=== PATIENT | female | born 1990 | race African-American/Black ===

== ENCOUNTER 2017-11-15 19:36 | Emergency (ER) | payer OTHER ==
[2017-11-15 20:30] VITALS: BP 128/88
--- NOTE | 2017-11-15 20:51 | ER Document Report ---
ED Medical Screen (RME) - General Chief Complaint: Palpitations Time Seen by Provider: 11/15/17 20:49 Notes: Patient is 36 weeks states she has had progressive shortness of breath the last month. She is also felt chest pain since 5 PM today. TRAVEL OUTSIDE OF THE [place] IN LAST 30 DAYS: No - Related Data Allergies/Adverse Reactions: No Known Allergies Allergy (Verified 11/15/17 20:09) Past Medical History - Social History Chew tobacco use (# tins/day): No Frequency of alcohol use: None Drug Abuse: None Renal/ Medical History: Denies: Hx Peritoneal Dialysis Physical Exam - Vital signs Vitals: Temp Pulse Resp BP Pulse Ox 98.3 F 85 16 128/88 H 100 11/15/17 20:29 11/15/17 20:29 11/15/17 20:29 11/15/17 20:29 11/15/17 20:29 Course - Vital Signs Vital signs: Temp Pulse Resp BP Pulse Ox 98.3 F 85 16 128/88 H 100 11/15/17 20:29 11/15/17 20:29 11/15/17 20:29 11/15/17 20:29 11/15/17 20:29
[2017-11-15 21:51] LABS: ABSOLUTE LYMPHOCYTES (AUTO) 1.1 10^3/uL (0.5-4.7); ABSOLUTE MONOCYTES (AUTO) 0.6 10^3/uL (0.1-1.4); BASOPHILS % (AUTO) 0.4 % (0-2); EOSINOPHILS % (AUTO) 0.8 % (0-6); HEMATOCRIT 39.7 % (36.0-47.0); HEMOGLOBIN 13.3 g/dL (12.0-15.5); LYMPHOCYTES % (AUTO) 22.8 % (13-45); MEAN CORPUSCULAR HEMOGLOBIN 27.3 pg (27.0-33.4); MEAN CORPUSCULAR HGB CONC 33.5 g/dL (32.0-36.0); MEAN CORPUSCULAR VOLUME 81 fl (80-97); MONOCYTES % (AUTO) 12.6 % (3-13); PLATELET COUNT 169 10^3/uL (150-450); RED BLOOD COUNT 4.88 10^6/uL (3.72-5.28); RED CELL DISTRIBUTION WIDTH 14.7 % (11.5-14.0); SEGMENTED NEUTROPHILS % (AUTO) 63.4 % (42-78); TOTAL CELLS COUNTED % (AUTO) 100 %; WHITE BLOOD COUNT 4.7 10^3/uL (4.0-10.5)
--- NOTE | 2017-11-15 21:53 | ER Document Report ---
ED General - General Chief Complaint: Palpitations Time Seen by Provider: 11/15/17 20:49 TRAVEL OUTSIDE OF THE [place] IN LAST 30 DAYS: No - HPI Notes: Patient is a 27-year-old female who is approximately 36 weeks with no significant past medical history presents to the ED complaining of pelvic cramping, and patient is concerned that this could be labor cramps. Patient states that with her first child she was unable to tell when she is having cramping. Patient was directed the emergency department because labor and delivery wanted her cleared prior as she had one brief episode of feeling palpitations at 1600 today with an episode of shortness of breath. Patient states that her symptoms resolved within 30 seconds, and were precipitated by pelvic pain. Patient states that she is ambulatory without any chest pains or shortness of breath. Patient is primarily concerned with the cramps. She denies any prolonged immobilization, recent surgery/trauma, smoking, drug use, previous DVT/PE. She has been eating and drinking without difficulties. She has been urinating normally and having normal bowel movements. She has no other concerns or complaints at this time. Denies any headache, fever, neck pain, URI, sore throat, chest pain, current palpitations, syncope, cough, current shortness of breath, wheeze, dyspnea, abdominal pain, nausea/vomiting/ diarrhea, urinary retention, dysuria, hematuria, vaginal bleeding, or rash. - Related Data Allergies/Adverse Reactions: No Known Allergies Allergy (Verified 11/15/17 20:09) Past Medical History - Social History Smoking Status: Never Smoker Chew tobacco use (# tins/day): No Frequency of alcohol use: None Drug Abuse: None Family History: Reviewed & Not Pertinent Patient has suicidal ideation: No Patient has homicidal ideation: No Renal/ Medical History: Denies: Hx Peritoneal Dialysis Review of Systems - Review of Systems -: Yes All other systems reviewed and negative Physical Exam - Vital signs Vitals: Temp Pulse Resp BP Pulse Ox 98.3 F 85 16 128/88 H 100 11/15/17 20:29 11/15/17 20:29 11/15/17 20:29 11/15/17 20:29 11/15/17 20:29 - Notes Notes: PHYSICAL EXAMINATION: GENERAL: Well-appearing, well-nourished and in no acute distress. A&Ox4. Answers questions appropriately. Chest: non-tender. no flail chest. LUNGS: Breath sounds clear to auscultation bilaterally and equal. No wheezes rales or rhonchi. HEART: Regular rate and rhythm without murmurs, rubs, gallops. ABDOMEN: Soft, nontender, nondistended abdomen. No guarding, no rebound. No masses appreciated. Normal bowel sounds present. No CVA tenderness bilaterally. Musculoskeletal: FROM to passive/active. Strength 5+/5. Gabe neg b/l. Extremities: No cyanosis, clubbing, or edema b/l. Peripheral pulses 2+. Capillary refill less than 3 seconds. NEUROLOGICAL: Normal speech, normal gait. Normal sensory, motor exams PSYCH: Normal mood, normal affect. SKIN: Warm, Dry, normal turgor, no rashes or lesions noted. Course - Re-evaluation Re-evalutation: 11/15/17 21:53 Patient is an afebrile, well-hydrated, 27-year-old female who presents to the ED with intermittent pelvic cramping. Vitals are acceptable. PE is otherwise unremarkable. CBC unremarkable for any acute pathology, CMP pending, EKG unremarkable for any acute pathology. Patient is PERC negative with a well score of 0. Patient did have a brief episode of palpitations and shortness of breath that was precipitated by pelvic cramping. That occurred about 5-1/2 hours ago and has not recurred since. Patient is most concerned about her cramping. I also am most concerned about her cramping and that she needs to be seen on the labor and delivery floor for further evaluation and management. No other labs or imaging warranted at this time based on H&P. Patient is in agreement. Patient to return to the emergency department any worsening/ concerning symptoms otherwise as reviewed discharge. - Vital Signs Vital signs: Temp Pulse Resp BP Pulse Ox 98.3 F 85 16 128/88 H 100 11/15/17 20:29 11/15/17 20:29 11/15/17 20:29 11/15/17 20:29 11/15/17 20:29 - Laboratory Result Diagrams: 11/15/17 21:37 11/15/17 21:37 Discharge - Discharge Clinical Impression: Pelvic cramping Condition: Stable Disposition: HOME, SELF-CARE Additional Instructions: Go to L&D floor for further evaluation and management. Recheck otherwise with OBGYN/PCM in 2-3 days. Return to the ED with any worsening symptoms and/or development of fever, headache, chest pain, palpitations, syncope, shortness of breath, trouble breathing, abdominal pain, n/v/d, blood in stool/urine, loss of control of bowel /bladder, urinary retention, muscle weakness/paralysis, saddle anesthesia, numbness/tingling, vaginal bleeding, or other worsening symptoms that are concerning to you. Referrals: [facility] [Provider Group] - Follow up as needed
[2017-11-15 22:04] LABS: ALANINE AMINOTRANSFERASE 29 U/L (9-52); ALBUMIN 4.1 g/dL (3.5-5.0); ALKALINE PHOSPHATASE 113 U/L (38-126); ANION GAP 10 (5-19); ASPARTATE AMINO TRANSFERASE 26 U/L (14-36); BILIRUBIN,DIRECT 0.2 mg/dL (0.0-0.4); BILIRUBIN,TOTAL 0.8 mg/dL (0.2-1.3); BLOOD UREA NITROGEN 4 mg/dL (7-20); CALCIUM 10.1 mg/dL (8.4-10.2); CARBON DIOXIDE 26 mmol/L (22-30); CHLORIDE 104 mmol/L (98-107); GLUCOSE 71 mg/dL (75-110); SODIUM 139.5 mmol/L (137-145); TOTAL PROTEIN 6.6 g/dL (6.3-8.2)
--- NOTE | 2017-11-15 22:52 | EKG REPORT ---
SEVERITY:- ABNORMAL ECG - SINUS RHYTHM PROBABLE LEFT ATRIAL ABNORMALITY RIGHT BUNDLE BRANCH BLOCK : Confirmed by: Denzel Fernández MD 15-Nov-2017 22:51:30
== END 2017-11-15 21:50 | disposition home or self-care (01) ==
LOC: ER 19:36 → EDSTATUS 19:36 → ER 21:50
DX: O26.899 Other specified pregnancy related conditions, unspecified trimester (principal); R10.2 Pelvic and perineal pain; R00.2 Palpitations; R06.02 Shortness of breath; Z3A.00 Weeks of gestation of pregnancy not specified
CPT/HCPCS: 36415; 80053; 85025; 93005; 93010; 99285

== ENCOUNTER 2017-11-15 21:55 | Outpatient (CLI) | payer OTHER ==
[2017-11-15 22:45] LABS: APPEARANCE,URINE CLOUDY; BILIRUBIN,URINE NEGATIVE (NEGATIVE); COLOR,URINE YELLOW; GLUCOSE, URINE NEGATIVE (NEGATIVE); KETONES,URINE TRACE mg/dL (NEGATIVE); LEUKOCYTE ESTERASE,URINE SMALL (NEGATIVE); NITRITE,URINE NEGATIVE (NEGATIVE); PROTEIN,URINE NEGATIVE (NEGATIVE); URINE SPECIFIC GRAVITY 1.014
[2017-11-15 23:02] LABS: URINE AMPHETAMINES SCREEN NEGATIVE; URINE BARBITURATES SCREEN NEGATIVE; URINE BENZODIAZEPINES SCREEN NEGATIVE; URINE COCAINE SCREEN NEGATIVE; URINE MARIJUANA (THC) SCREEN NEGATIVE; URINE METHADONE SCREEN NEGATIVE; URINE PHENCYCLIDINE SCREEN NEGATIVE
[2017-11-15 23:49] LABS: AMNISURE (ROM) NEGATIVE (NEGATIVE)
== END 2017-11-16 00:55 | disposition home or self-care (01) ==
LOC: LC 21:55
PROVIDERS: ATTEND Student in an Organized Health Care Education/Training Program
PROC: 4A1HXCZ Monitoring of Products of Conception, Cardiac Rate, External Approach (ICD-10-PCS; principal; 2017-11-15)
DX: O47.03 False labor before 37 completed weeks of gestation, third trimester (principal); Z3A.36 36 weeks gestation of pregnancy
CPT/HCPCS: 59025; 80307; 81001; 84112

== ENCOUNTER 2017-11-20 06:09 | Outpatient (CLI) | payer OTHER ==
[2017-11-20 06:48] LABS: APPEARANCE,URINE CLOUDY; BILIRUBIN,URINE NEGATIVE (NEGATIVE); GLUCOSE, URINE NEGATIVE (NEGATIVE); KETONES,URINE NEGATIVE (NEGATIVE); LEUKOCYTE ESTERASE,URINE LARGE (NEGATIVE); NITRITE,URINE NEGATIVE (NEGATIVE); PROTEIN,URINE 30 mg/dL (NEGATIVE); URINE SPECIFIC GRAVITY 1.017
[2017-11-20 06:57] LABS: COLOR,URINE YELLOW
[2017-11-20 07:04] LABS: URINE AMPHETAMINES SCREEN NEGATIVE; URINE BARBITURATES SCREEN NEGATIVE; URINE BENZODIAZEPINES SCREEN NEGATIVE; URINE COCAINE SCREEN NEGATIVE; URINE MARIJUANA (THC) SCREEN NEGATIVE; URINE METHADONE SCREEN NEGATIVE; URINE PHENCYCLIDINE SCREEN NEGATIVE
[2017-11-20] MEDS ORDERED: HYDROXYZINE PAMOATE 50 MG CAPSULE ONE (08:08)
[2017-11-20] MEDS ORDERED: HYDROXYZINE PAMOATE 50 MG CAPSULE PO ONE (08:42)
== END 2017-11-20 08:35 | disposition home or self-care (01) ==
LOC: LC 06:09
PROVIDERS: ATTEND Obstetrics & Gynecology
PROC: 4A1HXCZ Monitoring of Products of Conception, Cardiac Rate, External Approach (ICD-10-PCS; principal; 2017-11-20)
DX: O47.1 False labor at or after 37 completed weeks of gestation (principal); Z3A.37 37 weeks gestation of pregnancy
CPT/HCPCS: 59025; 80307; 81005; 87081

== ENCOUNTER 2017-11-27 02:06 | Outpatient (CLI) | payer OTHER ==
[2017-11-27 02:41] LABS: BILIRUBIN,URINE NEGATIVE (NEGATIVE); COLOR,URINE YELLOW; GLUCOSE, URINE NEGATIVE (NEGATIVE); KETONES,URINE NEGATIVE (NEGATIVE); LEUKOCYTE ESTERASE,URINE TRACE (NEGATIVE); NITRITE,URINE NEGATIVE (NEGATIVE); PROTEIN,URINE NEGATIVE (NEGATIVE); URINE SPECIFIC GRAVITY 1.005
[2017-11-27 02:45] LABS: APPEARANCE,URINE CLEAR
[2017-11-27 02:59] LABS: URINE AMPHETAMINES SCREEN NEGATIVE; URINE BARBITURATES SCREEN NEGATIVE; URINE BENZODIAZEPINES SCREEN NEGATIVE; URINE COCAINE SCREEN NEGATIVE; URINE MARIJUANA (THC) SCREEN NEGATIVE; URINE METHADONE SCREEN NEGATIVE; URINE PHENCYCLIDINE SCREEN NEGATIVE
[2017-11-27] MEDS ORDERED: HYDROXYZINE PAMOATE 50 MG CAPSULE PO ONE (05:35)
[2017-11-27] MEDS ORDERED: HYDROXYZINE PAMOATE 50 MG CAPSULE ONE (05:39)
[2017-11-27 07:31] LABS: CHLAM PCR NOT DETECTED (NOT DETECT); GON PCR NOT DETECTED (NOT DETECT)
== END 2017-11-27 05:48 | disposition home or self-care (01) ==
LOC: LC 02:06
PROVIDERS: ATTEND Obstetrics & Gynecology
PROC: 4A1HXCZ Monitoring of Products of Conception, Cardiac Rate, External Approach (ICD-10-PCS; principal; 2017-11-27)
DX: O47.1 False labor at or after 37 completed weeks of gestation (principal); Z3A.38 38 weeks gestation of pregnancy
CPT/HCPCS: 59025; 80307; 81005; 87491; 87591

== ENCOUNTER 2017-12-01 21:55 | Inpatient (IN) | payer OTHER ==
--- NOTE | 2017-12-01 22:03 | Non Stress Test Report ---
Non Stress Test Datetime Report Generated by CPN: 12/01/2017 22:03 DEMOGRAPHIC EGA NST: 38.1 EGA NST: 37.1 EGA NST: 36.3 INDICATION Indication for Study: Ordered by Provider Indication for Study: Ordered by Provider Indication for Study: Ordered by Provider VITAL SIGNS Temperature - NST: 97.9 Pulse - NST: 89 RESP - NST: 18 NBPSYS NST: 116 NBPDIA NST: 64 URINE RESULTS Urine Protein, NST: Negative Urine Ketones - NST: Positive Urine Glucose - NST: Negative Urine Blood - NST: Negative MONITORING Monitor Explained: Monitor Explained; Test Explained; Patient Verbalized Understanding Monitor Explained: Monitor Explained; Test Explained; Patient Verbalized Understanding Monitor Explained: Monitor Explained; Test Explained; Patient Verbalized Understanding Time on Monitor: 11/27/2017 03:55 Time on Monitor: 11/20/2017 07:45 Time on Monitor: 11/15/2017 22:19 Time off Monitor: 11/27/2017 04:18 Time off Monitor: 11/20/2017 08:14 Time off Monitor: 11/16/2017 00:39 NST Duration: 23 NST Duration: 29 NST Duration: 140 NST INTERVENTIONS NST Interventions: PO Hydration; Other NST Interventions: None NST Interventions: None NST Interventions Other: popsicle Physician Notified NST: Dr. Broderick Physician Notified NST: Ramon Pena CNM Physician Notified NST: Dr. Quintanilla BABY A: [id number] Movement : Present Movement : Present Movement : Present Contraction Frequency : 5-6 Contraction Frequency : irregular Contraction Frequency : 2-9 FHR Baseline : 120 FHR Baseline : 130 FHR Baseline : 130 Accelerations : 15X15 Accelerations : 15X15 Accelerations : 15X15 Decelerations : None Decelerations : None Decelerations : None Variability : Moderate 6-25bpm Variability : Moderate 6-25bpm NST Review: Meets Criteria for Reactive NST NST Review: Meets Criteria for Reactive NST NST Review: Meets Criteria for Reactive NST NST Review and Verified By : keon jean NST Review and Verified By : Jacquie Gross RN NST Review and Verified By : Nan Vasquez RN NST Results: Reactive NST Results: Reactive NST REPORT Report Trigger: Send Report
[2017-12-01] MEDS ORDERED: MISOPROSTOL 0.2 MG TABLET ONE (22:04)
[2017-12-01] MEDS ORDERED: RINGERS SOLUTION,LACTATED 1,000 ML IV PRN (22:04)
[2017-12-01] MEDS ORDERED: OXYTOCIN/NORMAL SALINE 20 UNIT/1,000 ML RTUINJ ONE (22:04)
[2017-12-01] MEDS ORDERED: LIDOCAINE 1% INJ-PF (10 MG/ML) 30 ML SDV ONE (22:04)
--- NOTE | 2017-12-01 22:14 | Admission Physical ---
Datetime Report Generated by CPN: 12/01/2017 22:14 CURRENT ADMISSION Chief Complaint: Uterine Contractions Indication for Induction: Not Applicable Admit Impression : Term, Intrauterine Admit Plan: Initiate Labor Protocol ALLERGIES Medication Allergies: No Medication Allergies: No Known Allergies (11/27/2017) Latex: No Latex Allergies Food Allergies: None Environmental Allergies: None OBSTETRICAL HISTORY EDC: 12/11/2017 00:00 : 2 Para: 1 Term: 1 : 0 SAB: 0 IAB: 0 Livin Cesareans: 0 Gestational Diabetes: Yes Rh Sensitization: No Incompetent Cervix: No DMITRI: No Infertility: No ART Treatment: No Uterine Anomaly: No IUGR: No Hx Previous C/S: No Macrosomia: No Hx Loss/Stillborn: No PIH: No Hx : No Placenta Previa/Abruption: No Depression/PP Depression: No PTL/PROM: No Post Hemorrhage: No Current Procedures: NST Obstetrical History Comments: G1- term baby girl 2012 G2- current SEE RECORDS Alcohol: No Marijuana : No Cocaine: No Other Illicit Drugs: No Cigarettes: Never Smoker. [id number] MEDICAL HISTORY Diabetes: Yes Diabetes Type: Gestational Diabetes Blood Transfusion: No Pulmonary Disease (Asthma, TB): No Breast Disease: No Hypertension: No Publications Manager Surgery: No Heart Disease: No Hosp/Surgery: No Autoimmune Disorder: No Anesthetic Complications: No Kidney Disease: No Abnormal Pap Smear: Yes Neuro/Epilepsy: No Psychiatric Disorders: No Other Medical Diseases: No Hepatitis/Liver Disease: No Significant Family History: No Varicosities/Phlebitis: No Trauma/Violence : No Thyroid Dysfunction: Yes Medical History Comments: wisdom teeth out, hypothyroidism (took synthroid for 6 months when 12 years old, resolved spontaneously INFECTIOUS HISTORY Gonorrhea: No Genital Herpes: No Chlamydia: No Tuberculosis: No Syphilis: No Hepatitis: No HIV/AIDS Exposure: No Rash or Viral Illness: No HPV: Yes Infectious History Comments: 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
[2017-12-01 22:39] LABS: ABSOLUTE LYMPHOCYTES (AUTO) 1.4 10^3/uL (0.5-4.7); ABSOLUTE MONOCYTES (AUTO) 0.8 10^3/uL (0.1-1.4); ABSOLUTE NEUT (AUTO) 3.9 10^3/uL (1.7-8.2); BASOPHILS % (AUTO) 0.4 % (0-2); EOSINOPHILS % (AUTO) 0.7 % (0-6); HEMATOCRIT 37.8 % (36.0-47.0); HEMOGLOBIN 12.8 g/dL (12.0-15.5); MEAN CORPUSCULAR HEMOGLOBIN 27.3 pg (27.0-33.4); MEAN CORPUSCULAR VOLUME 81 fl (80-97); MONOCYTES % (AUTO) 12.8 % (3-13); PLATELET COUNT 189 10^3/uL (150-450); RED CELL DISTRIBUTION WIDTH 14.9 % (11.5-14.0); SEGMENTED NEUTROPHILS % (AUTO) 63.1 % (42-78); TOTAL CELLS COUNTED % (AUTO) 100 %; WHITE BLOOD COUNT 6.2 10^3/uL (4.0-10.5)
[2017-12-01] MEDS ORDERED: AMMONIA INHALANTS 10 AMPUL/BOX IH ONE (22:42)
[2017-12-01] MEDS ORDERED: MAGNESIUM HYDROXIDE SUSP 30 ML UDCUP PO PRN (23:17)
[2017-12-01] MEDS ORDERED: MEASLES,MUMPS&RUBELLA VACC/PF 0.5 ML VIAL SUBCUT PRN (23:17)
[2017-12-01] MEDS ORDERED: ACETAMINOPHEN WITH CODEINE #3 TABLET PO PRN (23:17)
[2017-12-01] MEDS ORDERED: PROMETHAZINE HCL 25 MG TABLET PO PRN (23:17)
[2017-12-01] MEDS ORDERED: NA PHOS,M-B/NA PHOS,DI-BA (ADULT) 133 ML ENEMA PR PRN (23:17)
[2017-12-01] MEDS ORDERED: PSEUDOEPHEDRINE HCL 30 MG TABLET PO PRN (23:17)
[2017-12-01] MEDS ORDERED: ZOLPIDEM TARTRATE 5 MG TABLET PO PRN (23:17)
[2017-12-01] MEDS ORDERED: DIBUCAINE 1% OINTMENT 28 GM TP PRN (23:17)
[2017-12-01] MEDS ORDERED: BENZOCAINE/MENTHOL AEROSOL SPRAY 56 ML TOP PRN (23:17)
[2017-12-01] MEDS ORDERED: DIPH/PERTUSS(ACELL)/TETANUS VAC/PF 0.5 ML SYR (>=10YO) IM PRN (23:17)
[2017-12-01] MEDS ORDERED: PROMETHAZINE HCL INJ 25 MG/1 ML VIAL IV PRN (23:17)
[2017-12-01] MEDS ORDERED: ACETAMINOPHEN 650 MG SUPP.RECT PR PRN (23:17)
[2017-12-01] MEDS ORDERED: PROMETHAZINE HCL 25 MG SUPP.RECT PR PRN (23:17)
[2017-12-01] MEDS ORDERED: GLYCERIN/WITCH HAZEL LEAF 1 EACH MED..PAD TP PRN (23:17)
[2017-12-01] MEDS ORDERED: DIPHENHYDRAMINE HCL 25 MG CAPSULE PO PRN (23:17)
[2017-12-01] MEDS ORDERED: OXYTOCIN/NORMAL SALINE 20 UNIT/1,000 ML RTUINJ IV PRN (23:17)
[2017-12-01] MEDS ORDERED: IBUPROFEN 800 MG TABLET ONE (23:25)
--- NOTE | 2017-12-02 03:46 | Delivery Summary ---
Del Sum A-C Datetime Report Generated by CPN: 12/02/2017 03:45 DELIVERY PERSONNEL DELIVERY PERSONNEL: [id number] Delivery Doctor:: Darion Lloyd MD Labor and Delivery Nurse:: Ricarda Thapa RN Nursery Nurse:: Christy Max RN Derrick Builder/PILE FABRIC KNITTER: Kia Hyman, PILE FABRIC KNITTER MATERNAL INFORMATION Delivery Anesthesia: None Medications After Delivery: Pitocin Drip 20 Units/1000ml NSS Estimated Blood Loss (ml): 265 Maternal Complications: Precipitous Labor (<3hrs) LABOR SUMMARY EDC: 12/11/2017 00:00 No. Babies in Womb: 1 Attempted: No Labor Anesthesia: None LABOR INFORMATION Reason for Induction: Not Applicable Onset of Labor: 12/01/2017 20:30 Complete Dilatation: 12/01/2017 22:49 Oxytocin: N/A Group B Beta Strep: Negative Antibiotics # of Doses: 0 Antibiotics Time of Last Dose: N/A Steroids Given: None Reason Steroids Not Administered: Not Applicable MEMBRANES Membranes Rupture Method: Artificial Rupture of Membranes: 12/01/2017 22:16 Length of Rupture (hr): 0.87 Amniotic Fluid Color: Clear Amniotic Fluid Amount: Small Amniotic Fluid Odor: Normal STAGES OF LABOR Stage 1 hr: 2 Stage 1 min: 19 Stage 2 hr: 0 Stage 2 min: 19 Stage 3 hr: 0 Stage 3 min: 2 Total Time in Labor hr: 2 Total Time in Labor min: 40 VAGINAL DELIVERY Episiotomy: None Laceration #1: None Laceration Extension #1: N/A Laceration Repair: Not Applicable Sharps Count Correct: N/A CSECTION DELIVERY Primary Indication: N/A Secondary Indication: N/A CSection Incidence: N/A Labor: N/A Elective: N/A CSection Incision: N/A BABY A INFORMATION Delivery Date/Time: 12/01/2017 23:08 Method of Delivery: Vaginal Born in Route : No : N/A Forceps: N/A Vacuum Extraction: N/A Shoulder Dystocia : No PRESENTATION/POSITION BABY A Presentation: Cephalic Cephalic Presentation: Vertex Vertex Position: Right Occipital Anterior Breech Presentation: N/A PLACENTA INFORMATION BABY A Placenta Delivery Time : 12/01/2017 23:10 Placenta Method of Delivery: Spontaneous Placenta Status: Delivered SCORES BABY A Heart Rate 1 min: >100 bpm Resp Effort 1 min: Slow, Irregular Reflex Irritability 1 min: Cough or Sneeze or Pulls Away Muscle Tone 1 min: Active Motion Color 1 min: Blue/Pale Resuscitation Effort 1 min: Tactile Stimulation SCORE 1 MIN: 7 Heart Rate 5 min: >100 bpm Resp Effort 5 min: Good Cry Reflex Irritability 5 min: Cough or Sneeze or Pulls Away Muscle Tone 5 min: Active Motion Color 5 min: Body [place], Extremities Blue Resuscitation Effort 5 min: Tactile Stimulation SCORE 5 MIN: 9 INFORMATION BABY A Gestational Age at Delivery: 38.4 Gestational Status: Early Term- 37- 38.6 Weeks Infant Outcome : Liveborn Condition : Stable Infant Sex: Male IDENTIFICATION BABY A Infant Verification Date/Time: 12/02/2017 00:08 ID Band Number: [id number] Mother's Name Verified: Yes Infant RN Verifying Infant: Astrid Riley KVNG Additional Verifying Personnel: Ring, B. RN WEIGHT/LENGTH BABY A Birthweight (gm): 3000 Infant Weight (lb): 6 Infant Weight (oz): 10 Infant Length (in): 19.50 Infant Length (cm): 49.53 CORD INFORMATION BABY A No. Cord Vessels: 3 Nuchal Cord : Around Neck x1, Tight Cord Blood Taken: Yes-For Eval (Mom's Blood Type - or O+) Suction: Mouth; Nose ASSESSMENT BABY A Infant Complications: None Physical Findings at Delivery: Bruising Physical Findings- Other: See full nursery assessment Infant Respirations: Appears Normal Skin to Skin: Yes Skin to Skin Time (min): 40 Duralumin Metalworker/ALS Called : No Care By: Kate Max Transferred To: Remains with Mother BABY B INFORMATION : N/A SIGNATURES Signature: with User ID: [email or web address]
[2017-12-02 06:47] LABS: HEMATOCRIT 34.4 % (36.0-47.0); HEMOGLOBIN 11.7 g/dL (12.0-15.5); MEAN CORPUSCULAR HEMOGLOBIN 27.4 pg (27.0-33.4); MEAN CORPUSCULAR VOLUME 80 fl (80-97); PLATELET COUNT 174 10^3/uL (150-450); RED BLOOD COUNT 4.28 10^6/uL (3.72-5.28); RED CELL DISTRIBUTION WIDTH 14.8 % (11.5-14.0); WHITE BLOOD COUNT 9.5 10^3/uL (4.0-10.5)
[2017-12-02] MEDS: IBUPROFEN 800 MG TABLET PO SCH ×2 (07:16→13:31)
[2017-12-02] MEDS ORDERED: (PENDING PHARMACY ID) (Prenatal Vit No.129/Iron/Folic [Prenatal One Daily Tablet] 1 TAB) PO SCH (10:00)
[2017-12-02] MEDS: PRENATAL VITAMIN W DHA CAPSULE PO SCH (10:31)
[2017-12-02] MEDS: FERROUS SULFATE 325 MG TABLET PO SCH ×2 (10:32→17:34)
[2017-12-02] MEDS: DOCUSATE SODIUM 100 MG CAPSULE PO SCH ×2 (10:34→17:34)
[2017-12-02] MEDS: SENNOSIDES/DOCUSATE 8.6-50 MG 1 EACH TABLET PO SCH (10:34)
[2017-12-02] MEDS: FAMOTIDINE 20 MG TABLET PO SCH (10:34)
--- NOTE | 2017-12-02 11:45 | PDOC PROGRESS REPORT ---
Subjective-OB Progress Note for:: 12/02/17 Physical Exam (OB) Vital Signs: Temp Pulse Resp BP Pulse Ox 98.5 F 68 20 124/85 100 12/02/17 08:13 12/02/17 08:13 12/02/17 08:13 12/02/17 08:13 12/02/17 08:13 Intake & Output 12/01/17 12/02/17 12/03/17 06:59 06:59 06:59 Weight 70 kg - Lochia Lochia Amount: Scant < 10 ml Lochia Color: Rubra/Red - Abdomen Description: Soft Hernia Present: No Bowel Sounds: Normoactive Flatus Presence: Present Stool: No Fundal Description: Firm, Midline Fundal Height: u/u - u/2 Objective-Diagnostic Laboratory: 12/02/17 06:27 12/01/17 12/01/17 12/02/17 22:10 22:10 06:27 WBC 6.2 9.5 RBC 4.70 4.28 Hgb 12.8 11.7 L Hct 37.8 34.4 L MCV 81 80 MCH 27.3 27.4 MCHC 34.0 34.0 RDW 14.9 H 14.8 H Plt Count 189 174 Seg Neutrophils % 63.1 Lymphocytes % 23.0 Monocytes % 12.8 Eosinophils % 0.7 Basophils % 0.4 Absolute Neutrophils 3.9 Absolute Lymphocytes 1.4 Absolute Monocytes 0.8 Absolute Eosinophils 0.0 Absolute Basophils 0.0 Blood Type O POSITIVE Antibody Screen NEGATIVE
[2017-12-03] MEDS: FAMOTIDINE 20 MG TABLET PO SCH ×2 (05:44→09:18)
[2017-12-03] MEDS: IBUPROFEN 800 MG TABLET PO SCH ×2 (05:44→05:45)
[2017-12-03] MEDS: PRENATAL VITAMIN W DHA CAPSULE PO SCH (09:17)
[2017-12-03] MEDS: FERROUS SULFATE 325 MG TABLET PO SCH (09:17)
[2017-12-03] MEDS: SENNOSIDES/DOCUSATE 8.6-50 MG 1 EACH TABLET PO SCH (09:18)
[2017-12-03] MEDS: DOCUSATE SODIUM 100 MG CAPSULE PO SCH (09:18)
--- NOTE | 2017-12-03 09:25 | PDOC PROGRESS REPORT ---
Subjective-OB Progress Note for:: 12/03/17 Physical Exam (OB) Vital Signs: Temp Pulse Resp BP Pulse Ox 98.6 F 69 16 124/84 100 12/03/17 07:25 12/03/17 07:25 12/03/17 07:25 12/03/17 07:25 12/03/17 07:25 Intake & Output 12/02/17 12/03/17 12/04/17 06:59 06:59 06:59 Weight 70 kg - Lochia Lochia Amount: Scant < 10 ml Lochia Color: Rubra/Red - Abdomen Description: Tender, Soft, Round Hernia Present: No Bowel Sounds: Normoactive Flatus Presence: Present Stool: Yes Fundal Description: Firm, Midline Fundal Height: u/u - u/2 - Respiratory Breath sounds: Clear - Extremities Calf: Nontender Objective-Diagnostic Laboratory: 12/02/17 06:27 Assessment and Plan(PN) - Assessment and Plan (1) Delivery normal Is this a current diagnosis for this admission?: Yes (2) GDM (gestational diabetes mellitus) Qualifiers: Gestational diabetes mellitus control: diet-controlled Is this a current diagnosis for this admission?: Yes (3) Qualifiers: Weeks of gestation: 39 weeks Qualified Code(s): Z3A.39 - 39 weeks gestation of Is this a current diagnosis for this admission?: Yes (4) Sickle cell trait Is this a current diagnosis for this admission?: Yes - Time Spent with Patient Time with patient: 15-25 minutes Medications reviewed and adjusted accordingly: Yes - Disposition Anticipated Discharge: Home
--- NOTE | 2017-12-03 09:28 | PDOC DISCHARGE SUMMARY ---
Final Diagnosis Discharge Date: 12/03/17 - Final Diagnosis (1) Delivery normal Is this a current diagnosis for this admission?: Yes (2) GDM (gestational diabetes mellitus) Is this a current diagnosis for this admission?: Yes (3) Is this a current diagnosis for this admission?: Yes (4) Sickle cell trait Is this a current diagnosis for this admission?: Yes Discharge Data - Discharge Medication Prescriptions: Ibuprofen [Motrin 800 mg Tablet] 800 mg PO Q8 #90 tablet Home Medications: Vit No.129/Iron/Folic [ One Daily Tablet] 1 tab PO DAILY Ibuprofen [Motrin 800 mg Tablet] 800 mg PO Q8 #90 tablet 12/03/17 Reason(s) for Admission: Onset of Labor Intrapartum Procedure(s): Spontaneous Vaginal Delivery - Diagnosis Test Laboratory: Temp Pulse Resp BP Pulse Ox 98.6 F 69 16 124/84 100 12/03/17 07:25 12/03/17 07:25 12/03/17 07:25 12/03/17 07:25 12/03/17 07:25 12/01/17 12/02/17 22:10 06:27 RBC 4.70 4.28 Hgb 12.8 11.7 L Hct 37.8 34.4 L - Discharge information/Instructions Discharge Activity: Activity As Tolerated Discharge Diet: As Tolerated Disposition: HOME, SELF-CARE Follow up with: [facility] in: 6
[2017-12-03 09:54] VITALS: BP 124/68
== END 2017-12-03 12:09 | disposition home or self-care (01) | DRG 774 ==
LOC: LC 21:55 → LR 21:59 → 2S 12-02 01:59
PROVIDERS: ADMIT Obstetrics & Gynecology Gynecology; ATTEND Obstetrics & Gynecology Gynecology
PROC: 10E0XZZ Delivery of Products of Conception, External Approach (ICD-10-PCS; principal; 2017-12-01)
DX: O24.420 Gestational diabetes mellitus in childbirth, diet controlled (principal); O98.32 Other infections with a predominantly sexual mode of transmission complicating childbirth; O99.02 Anemia complicating childbirth; D57.3 Sickle-cell trait; O62.3 Precipitate labor; O69.1XX0 Labor and delivery complicated by cord around neck, with compression, not applicable or unspecified; Z3A.38 38 weeks gestation of pregnancy; Z37.0 Single live birth
CPT/HCPCS: 36415; 85025; 85027; 86592; 86850; 86900; 86901; 94760; J2590; J3490

== ENCOUNTER → 2018-11-28 | Outpatient (CLI) | payer OTHER | LOC: OD 11:39 | PROVIDERS: ATTEND Nurse Practitioner Primary Care | DX: O03.9 Complete or unspecified spontaneous abortion without complication (principal); O73.1 Retained portions of placenta and membranes, without hemorrhage | CPT/HCPCS: 36415; 84702 ==